=== PATIENT | female | born 1955 | race Caucasian/White ===

== ENCOUNTER 2020-09-26 13:20 | Outpatient (CLI) | payer MEDICARE ==
[2020-09-26 15:14] LABS: #Eosinphils 0.1 10x3/uL (0.0-0.5); #Monocytes 0.4 10x3/uL (0.0-1.1); #Neutrophils 3.7 10x3/uL (1.5-8.4); %Basophils 0.7 % (0.0-2.0); %Eosinophils 1.5 % (0.0-6.0); %Lymphocytes 28.3 % (18.0-47.0); %Monocytes 7.3 % (0.0-10.0); %Neutrophils 61.7 % (40.0-75.0); Hemoglobin 13.2 g/dL (12.0-15.5); Mean Corpuscular HGB CONC 34.4 g/dL (32.0-36.0); Mean Corpuscular Hemoglobin 30.5 pg (27.0-33.0); Mean Corpuscular Volume 88.7 fl (81.6-98.3); Mean Platelet Volume 11.1 fl (7.4-10.4); Platelet Count 272 10x3/uL (150-450); RBC Distribution Width 13.2 % (11.5-14.5); Red Blood Cell (RBC) Count 4.33 10x6/uL (3.90-5.03)
[2020-09-26 15:50] LABS: ALT (SGPT) 34 U/L (8-55); AST (SGOT) 35 U/L (5-34); Albumin 4.5 g/dL (3.4-4.8); Alkaline Phosphatase 77 U/L (40-110); Anion Gap 15 mmol/L (10-20); BUN (Urea Nitrogen) 25 mg/dL (9.8-20.1); Bilirubin, Total 0.5 mg/dL (0.2-1.2); Calc. Creatinine Clearance 0 mL/min (70-130); Calcium 9.5 mg/dL (7.8-10.44); Carbon Dioxide 21 mmol/L (23-31); Chloride 110 mmol/L (98-107); Globulin 2.3 g/dL (2.4-3.5); Glucose 100 mg/dL (80-115); Potassium 3.7 mmol/L (3.5-5.1); Protein, Total 6.8 g/dL (5.8-8.1); Sodium 142 mmol/L (136-145)
[2020-09-27 06:00] LABS: SARS-CoV-2 PCR by NAA Not Detected (NotDetected)
== END 2020-09-26 13:21 | disposition home or self-care (01) ==
LOC: LABBT 13:20
PROVIDERS: ATTEND Internal Medicine Cardiovascular Disease
DX: Z01.812 Encounter for preprocedural laboratory examination (principal); Z20.822 Contact with and (suspected) exposure to COVID-19
CPT/HCPCS: 80053; 85025; U0003; U0005; 87635

== ENCOUNTER 2020-09-29 09:52 | Day surgery (SDC) | payer MEDICARE ==
[2020-09-28 10:07] VITALS: BMI 29.5
[2020-09-29] MEDS ORDERED: Lidocaine 1% (PF) 30 ML VIAL ONE (12:35)
[2020-09-29] MEDS ORDERED: Midazolam HCl 2 mg/2 ml Vial ONE (12:49)
[2020-09-29] MEDS ORDERED: Fentanyl 100 MCG/2 ML VIAL ONE (12:50)
[2020-09-29] MEDS ORDERED: Nitroglycerin 100MG/250ML BOT 250 ML ONE (13:15)
[2020-09-29] MEDS ORDERED: Heparin 10,000 UNITS/ 10 ML VIAL ONE (13:20)
[2020-09-29] MEDS ORDERED: Clopidogrel Bisulfate 300 MG TAB ONE ×2 (13:28→13:31)
[2020-09-29] MEDS ORDERED: Iopamidol 370 76% 100 ML VIAL ONE (13:59)
[2020-09-29] MEDS ORDERED: Iopamidol 370 76% 50 ML VIAL FS ONE (13:59)
[2020-09-29] MEDS ORDERED: Aspirin Chewable 81 MG TAB ONE (15:28)
--- NOTE | 2020-10-05 15:17 | EKG ---
Test Reason : S/P STENT Blood Pressure : / mmHG Vent. Rate : 068 BPM Atrial Rate : 068 BPM P-R Int : 186 ms QRS Dur : 176 ms QT Int : 494 ms P-R-T Axes : 062 -11 140 degrees QTc Int : 525 ms Normal sinus rhythm Left bundle branch block Abnormal ECG No previous ECGs available Confirmed by KRISS FAUSTIN (2) on 10/05/2020 3:17:07 PM Referred By: SARIKA Confirmed By:KRISS FAUSTIN
== END 2020-09-29 17:34 | disposition home or self-care (01) ==
LOC: CCL 09:52
PROVIDERS: ATTEND Internal Medicine Cardiovascular Disease
PROC: 027034Z Dilation of Coronary Artery, One Artery with Drug-eluting Intraluminal Device, Percutaneous Approach (ICD-10-PCS; principal; 2020-09-29)
PROC: 4A023N7 Measurement of Cardiac Sampling and Pressure, Left Heart, Percutaneous Approach (ICD-10-PCS; 2020-09-29)
PROC: B2111ZZ Fluoroscopy of Multiple Coronary Arteries using Low Osmolar Contrast (ICD-10-PCS; 2020-09-29)
DX: I25.10 Atherosclerotic heart disease of native coronary artery without angina pectoris (principal); I44.7 Left bundle-branch block, unspecified; I10 Essential (primary) hypertension; E78.5 Hyperlipidemia, unspecified; Z85.3 Personal history of malignant neoplasm of breast; Z86.711 Personal history of pulmonary embolism; Z87.891 Personal history of nicotine dependence; Z79.1 Long term (current) use of non-steroidal anti-inflammatories (NSAID); Z79.82 Long term (current) use of aspirin; Z79.899 Other long term (current) drug therapy
CPT/HCPCS: 76942; 85347; 92928; 93005; 93454; 99152; 99153; C1753; C1874; C9600; J1644; J2001; J2250; J3010; Q9967